=== PATIENT | female | born 1950 | race Caucasian/White ===

== ENCOUNTER → 2017-09-06 | Outpatient (CLI) | payer OTHER ==
[2014-04-10 10:41] VITALS: BP 123/63
--- NOTE | 2017-09-07 15:04 | MG ---
HISTORY: SCREENING Comparison: No previous mammograms been performed at this facility FINDINGS: Bilateral CC and MLO projections of the right and left breast were obtained. Scattered fibroglandula r tissue is seen to be present. A cluster of four small benign-appearing nodules, measuring 2-4 mm i n diameter, is seen in the upper outer aspect of the right breast. Likelihood is that these represent small intramammary lymph nodes. No other sign of dominant mass, areas architectural distortion, or s uspicious microcalcifications are seen on either side.. No skin thickening or nipple retraction is a ppreciated. No pathological lymphadenopathy can be identified. Benign-appearing calcifications scat tered throughout the right and left breasts are observed. IMPRESSION: NO RADIOGRAPHIC EVIDENCE OF MALIGNANCY. ACR CATEGORY: 2 - benign findings. FOLLOW-UP EXAM 1 YEAR. Diagnostic CAD was utilized and reviewed. * 0 (ZERO) - ASSESSMENT INCOMPLETE; ADDITIONAL IMAGING IS NEEDED. * / (ONE) - NEGATIVE. * 2/II (TWO) - BENIGN FINDINGS. * 3/III (THREE) - PROBABLY BENIGN FINDING; SHORT INTERVAL FOLLOW-UP SUGGESTED. * 4/IV (FOUR) - SUSPICIOUS ABNORMALITY; BIOPSY SHOULD BE CONSIDERED. * 5/V - HIGHLY SUSPICIOUS OF MALIGNANCY; BIOPSY SHOULD BE PERFORMED. A NEGATIVE X-RAY REPORT SHOULD NOT DELAY BIOPSY IF A DOMINANT OR CLINICALLY SUSPICIOUS MASS IS PRESENT; 4 TO 8 PERCENT OF CANCERS ARE NOT IDENTIFIED BY X-RAY. A NEGA TIVE REPORT MAY REINFORCE THE CLINICAL IMPRESSION. ADENOSIS AND DENSE BREASTS MAY OBSCURE AN UNDERLYING NEOPLASM. Reported By:
== END ==
LOC: RAD 13:10
PROVIDERS: ATTEND Physician Assistant Medical
DX: Z12.31 Encounter for screening mammogram for malignant neoplasm of breast (principal)
CPT/HCPCS: 77067

== ENCOUNTER 2021-01-13 15:18 | Observation (INO) ==
--- NOTE | 2021-01-13 16:47 | RAD ---
ACUTE ABDOMEN SERIESHISTORY:ABDOMINAL PAINStudy: Frontal view of the chest, flat and upright views of the abdomenComparison:NoneFindings:Cardiomediastinal silhouette is normal in size .No focal consolidations, pleural effusions or pneumothorax.Flat and upright views of the abdomen demonstrates a normal bowel gas pattern.No free air..No abnormal calcifications or abnormal soft tissue shadows. No acute bony abnormalities.IMPRESSION:1. No acute cardiopulmonary disease.2. No evidence for acute abdominal pathology.Electronically signed by: HAO AVALOS (Jan 13, 2021 16:46:03)
[2021-01-13 17:02] LABS: BASOPHILS % (AUTO) 0.5 % (0.2-1.0); EOSINOPHILS % (AUTO) 0.2 % (0.9-2.9); HEMATOCRIT 40.9 % (36.0-47.0); HEMOGLOBIN 13.9 g/dL (12.0-16.0); LYMPHOCYTES # (AUTO) 1.6 X10^3/uL (1.3-2.9); LYMPHOCYTES % (AUTO) 20.4 % (21.0-51.0); MEAN CORPUSCULAR HEMOGLOBIN 29.7 pg (27.0-34.0); MEAN CORPUSCULAR VOLUME 87.3 fL (80.0-100.0); MEAN PLATELET VOLUME 7.4 fL (7.4-11.0); MONOCYTES # (AUTO) 0.6 x10^3/uL (0.3-0.8); MONOCYTES % (AUTO) 7.3 % (0.0-13.0); NEUTROPHILS # (AUTO) 5.6 x10^3/uL (2.2-4.8); NEUTROPHILS % (AUTO) 71.6 % (42.0-75.0); PLATELET COUNT 263 X10^3/uL (150.0-450.0); RED BLOOD COUNT 4.69 X10^6/uL (3.5-5.4); RED CELL DISTRIBUTION WIDTH 14.8 % (11.6-16.5); WHITE BLOOD COUNT 7.8 X10^3/uL (3.6-10.0)
[2021-01-13 17:19] LABS: ALANINE AMINOTRANSFERASE 39 Units/L (12-78); ALBUMIN 4.1 g/dL (3.4-5.0); ALKALINE PHOSPHATASE 94 Units/L (46-116); AMYLASE 42 Units/L (25-115); ASPARTATE AMINO TRANSFERASE 26 Units/L (15-37); BLOOD UREA NITROGEN 12 mg/dL (7-18); CALCIUM 9.3 mg/dL (8.5-10.1); CARBON DIOXIDE 25.2 mmol/L (21-32); CHLORIDE 103 mmol/L (98-107); COR NA(FOR HYPERGLY) 139 mmol/L (136-145); CREATININE 1.05 mg/dL (0.55-1.02); LIPASE 166 Units/L (73-393); SODIUM 138 mmol/L (136-145); TOTAL PROTEIN 7.3 g/dL (6.4-8.2); eGFR NON BLACK RACES 55 (>60)
[2021-01-13] MEDS: PROTONIX INJ 40 MG VIAL IVP SCH ×2 (17:23→20:10)
[2021-01-13] MEDS: NS 1000 ML 1,000 ML IV SCH (17:23)
[2021-01-13 17:54] VITALS: BMI 31.9
[2021-01-13] MEDS ORDERED: ZOFRAN INJ 4 MG VIAL IVP PRN (18:21)
--- NOTE | 2021-01-13 18:28 | DR.H&P ---
H&P - History & Physical for Day of: H&P Date: 01/13/21 - Chief Complaint Chief Complaint: ABDOMINAL PAIN, N/V, DEHYDRATION - History of Present Illness History of Present Illness: PT IS 70 WF DIRECT ADMIT WITH CO INTRACTABLE ABDOMINAL PAIN SINCE NOVEMBER. PT STATES SHE HAD EGD THEN AND DX WITH GASTROPARESIS. PT HAS BEEN TO ER 3 TIMES SINCE THEN AND IN OUR OFFICE X2 WITH ABDOMINAL PAIN NOT IMPROVED WITH PPI, NARCOTIC PAIN CONTROL, PEPCID OR ANTI SPASMODICS. PT ADMITTED FOR ACUTE ILLNESS. - Past Medical History Past Medical History: Anxiety, Arthritis, GERD, Hypertension - Past Surgical History Surgical History: Cholecystectomy, Hysterectomy, Tonsillectomy - Family History Family Medical History: Cancer, Hypertension - Social History Does patient currently use any type of tobacco product: No Have you used tobacco products in the last 12 months: No Type of Tobacco Use: None Does any household member use tobacco: No Alcohol Use: None Drug Use: None Prescription drug monitoring program results: PDMP reviewed and no concerns identified - Medications Home Medications: No Known Drug Allergies Allergy (Verified 03/01/18 10:44) CONTINUE taking the following medications cariprazine [Vraylar] 1.5 mg PO DAILY 01/13/21 [History] dicyclomine 20 mg PO QID 01/13/21 [History] pantoprazole [Protonix] 40 mg PO BID 01/13/21 [History] solifenacin [Vesicare] 10 mg PO DAILY 01/13/21 [History] sucralfate 1 g PO DAILYAC 01/13/21 [History] - Review of Systems Constitutional: Weakness Eyes: No Symptoms Reported ENT: No Symptoms Reported Respiratory: No Symptoms Reported Cardiovascular: No Symptoms Reported Gastrointestinal: Nausea, Vomiting, Abdominal Pain, Diarrhea, Constipation Genitourinary: No Symptoms Reported Musculoskeletal: No Symptoms Reported Skin: No Symptoms Reported Neurological: No Symptoms Reported - Physical Exam Vital Signs: Temperature 98.6 F Pulse Rate [Left Brachial] 86 Respiratory Rate 20 Blood Pressure [Left Arm] 145/70 Oriented: Normal Eyes: Normal Ear: Normal Nose: Normal Throat: Normal Respiratory: Clear Throughout Cardiovascular: Normal : Normal Auscultation: Bowel Sounds: Normal Tenderness: Diffuse, RUQ, LUQ, Epigastric Skin: Decreased Turgur Musculoskeletal: Back:Thoracic, Back:Lumbar Psychiatric: Anxiety Affect: Anxious Speech Pattern: Clear, Appropriate - Assessment/Plan (1) Acute mesenteric adenitis Status: Acute Plan: ADMIT, NPO AFTER MID NIGHT FOR CT. AMYLASE LIPASE AND LACTIC ACID ON ADMISSION. IV HYDRATION, BID PPI THERAPY. PAIN CONTROL. VERIFY HOME MEDICATION, STOOL STUDIES (2) Gastroparesis Status: Acute (3) Hernia, hiatal Status: Acute - Allergies Allergies/Adverse Reactions: Allergies Allergy/AdvReac Type Severity Reaction Status Date / Time No Known Drug Allergies Allergy Verified 03/01/18 10:44
[2021-01-13 19:47] LABS: BILIRUBIN,URINE NEGATIVE (NEGATIVE); BLOOD/HEMOGLOBIN,URINE NEGATIVE (NEGATIVE); GLUCOSE, URINE NEGATIVE (NEGATIVE); KETONES,URINE 1+ (NEGATIVE); LEUKOCYTE ESTERASE ,URINE 1+ (NEGATIVE); NITRITES,URINE NEGATIVE (NEGATIVE); PROTEIN,URINE NEGATIVE (NEGATIVE); UROBILINOGEN,URINE NORMAL (NORMAL)
[2021-01-13 19:57] LABS: APPEARANCE,URINE HAZY (CLEAR); COLOR,URINE STRAW (YELLOW)
[2021-01-13 19:58] LABS: BACTERIA,URINE TRACE /HPF (NEGATIVE); SQUAMOUS EPITHELIAL CELL,UR RARE /HPF (NEGATIVE); TRANSITIONAL EPI CELLS,URINE FEW /HPF (NEGATIVE)
[2021-01-13] MEDS: ZITHROMAX INJ 500 MG VIAL 500 MG in NS 250 ML IV 250 ML IV SCH (20:11)
[2021-01-13] MEDS: COZAAR PO SCH (20:11)
[2021-01-13] MEDS: TORADOL 30 MG VIAL IVP SCH (20:18)
[2021-01-13] MEDS: CARAFATE ORAL SUSP PO SCH (21:56)
[2021-01-13] MEDS: DONNATAL TAB PO SCH (21:56)
[2021-01-13] MEDS: COLACE CAP 100 MG PO SCH (21:57)
[2021-01-14] MEDS: NORCO 5/325 MG TAB PO PRN (01:47)
[2021-01-14] MEDS: TORADOL 30 MG VIAL IVP SCH ×2 (03:15→11:30)
[2021-01-14] MEDS: DONNATAL TAB PO SCH ×4 (05:51→22:02)
[2021-01-14] MEDS: CARAFATE ORAL SUSP PO SCH ×4 (05:52→22:01)
[2021-01-14] MEDS: NS 1000 ML 1,000 ML IV SCH ×2 (05:52→21:52)
[2021-01-14 06:12] LABS: BASOPHILS % (AUTO) 0.6 % (0.2-1.0); EOSINOPHILS # (AUTO) 0.1 x10^3/uL (0.0-0.2); HEMATOCRIT 36.6 % (36.0-47.0); HEMOGLOBIN 12.4 g/dL (12.0-16.0); LYMPHOCYTES # (AUTO) 1.4 X10^3/uL (1.3-2.9); LYMPHOCYTES % (AUTO) 22.3 % (21.0-51.0); MEAN CORPUSCULAR HEMOGLOBIN 29.4 pg (27.0-34.0); MEAN CORPUSCULAR HGB CONC 33.9 g/dL (33.0-35.0); MEAN CORPUSCULAR VOLUME 86.6 fL (80.0-100.0); MEAN PLATELET VOLUME 7.7 fL (7.4-11.0); MONOCYTES # (AUTO) 0.6 x10^3/uL (0.3-0.8); NEUTROPHILS # (AUTO) 4.4 x10^3/uL (2.2-4.8); NEUTROPHILS % (AUTO) 67.1 % (42.0-75.0); PLATELET COUNT 214 X10^3/uL (150.0-450.0); RED BLOOD COUNT 4.22 X10^6/uL (3.5-5.4); RED CELL DISTRIBUTION WIDTH 14.4 % (11.6-16.5); WHITE BLOOD COUNT 6.5 X10^3/uL (3.6-10.0)
[2021-01-14 06:34] LABS: ALANINE AMINOTRANSFERASE 33 Units/L (12-78); ALBUMIN 3.5 g/dL (3.4-5.0); ALKALINE PHOSPHATASE 80 Units/L (46-116); ASPARTATE AMINO TRANSFERASE 24 Units/L (15-37); BLOOD UREA NITROGEN 9 mg/dL (7-18); CALCIUM 8.5 mg/dL (8.5-10.1); CHLORIDE 108 mmol/L (98-107); CREATININE 0.95 mg/dL (0.55-1.02); SODIUM 142 mmol/L (136-145); TOTAL PROTEIN 6.3 g/dL (6.4-8.2); eGFR NON BLACK RACES > 60 (>60)
[2021-01-14] MEDS: COZAAR PO SCH (08:18)
[2021-01-14] MEDS: CYMBALTA PO SCH (08:18)
[2021-01-14] MEDS: CARIPRAZINE 1.5 MG PO SCH (08:18)
[2021-01-14] MEDS: LOVENOX INJ 40 MG SYR SC SCH ×2 (08:20→08:23)
[2021-01-14] MEDS: PROTONIX INJ 40 MG VIAL IVP SCH ×2 (08:20→22:03)
[2021-01-14] MEDS: MORPHINE SULFATE INJ 2 MG INJ IVP PRN ×2 (10:30→17:29)
[2021-01-14] MEDS: ZITHROMAX INJ 500 MG VIAL 500 MG in NS 250 ML IV 250 ML IV SCH (21:52)
[2021-01-14] MEDS: COLACE CAP 100 MG PO SCH (22:01)
[2021-01-15] MEDS ORDERED: CARAFATE ORAL SUSP PO ONE (04:01)
[2021-01-15] MEDS: DONNATAL TAB PO SCH ×2 (06:25→11:41)
[2021-01-15] MEDS: CARAFATE ORAL SUSP PO SCH ×2 (06:25→11:40)
[2021-01-15] MEDS: COZAAR PO SCH (09:37)
[2021-01-15] MEDS: LOVENOX INJ 40 MG SYR SC SCH (09:39)
[2021-01-15] MEDS: PROTONIX INJ 40 MG VIAL IVP SCH (09:39)
[2021-01-15 10:18] LABS: CRYPTOSPORIDIUM PARVUM ANTIGEN NEGATIVE (NEGATIVE); GIARDIA LAMBLIA ANTIGEN NEGATIVE (NEGATIVE)
--- NOTE | 2021-01-15 11:10 | CT ---
CT abdomen and pelvis with contrastIndication: Abdominal painComparison January 10, 2021 CT.TECHNIQUEHelical images through the abdomen and pelvis after IV contrast. Coronal and sagittal reformats provided.FINDINGSReview of bone windows demonstrate no destructive osseous lesion. Spine DJD notedLimited images through the lower chest demonstrate small hiatal hernia and scarring in the lung bases. Heart size is enlarged.Abdomen: The gallbladder is absent. The liver is low in attenuation. Spleen is prominent in size. Portal vein is prominent and borderline cirrhotic configuration of the liver noted.Adrenal glands are normal. Tiny hypodensity at the head of the pancreas is noted on axial image 28, too small to further characterize.Kidneys show no hydroureteronephrosis. There is exophytic left renal cyst. Aortoiliac vessels are patent. Oral contrast passes distally without obstruction.There are shotty lymph nodes in the right lower quadrant with mild stranding. The appendix is normal.Pelvis: Urinary bladder and rectum are normal. Uterus is absent. No adnexal region lesions seen.IMPRESSION1. Right lower quadrant stranding and shotty lymph nodes is similar to slightly improved from the prior, without evidence of acute appendicitis identified. Mild ileitis or inflammation of the cecum not excluded. No drainable collection identified. Given the patient's age, nonemergent colonoscopy follow-up is recommended to exclude other lying lesion at the cecum, as underlying neoplasm is not excluded2. Prominent heart size, hiatal hernia, spine DJD and other findings as above.3. Tiny hypodensity at the head of the pancreas is nonspecific, possibly a small IPMN. Nonemergent MR follow-up can definitively characterize.Electronically signed by: JOSE STALLINGS (Jan 15, 2021 11:07:37)
[2021-01-15] MEDS: CYMBALTA PO SCH ×2 (11:26→11:32)
[2021-01-15] MEDS: CARIPRAZINE 1.5 MG PO SCH (11:31)
--- NOTE | 2021-01-15 11:31 | DR.CONSULT ---
Consult - Consultation for Day of: Date: 01/14/21 - Chief Complaint Chief Complaint: Patient referred for abdominal pain. Patient with complaints dyspesia, epigastric pain and diarrhea. - History of Present Illness History of Present Illness: Patient is a 70 yo female who was referred for abdominal pain. Patient with complaints dyspesia, epigastric pain and diarrhea that has improved since in the hospital. Pateint denies dysphagia, nausea, vomiting, constipation, melena and hematochezia. Last Colon was 10/22/20 internal hemorrhoids and tubular adenomatous colon polyps x2. Last EGD was 12/10/20 EGD, showing disal esophagitits with stricture, 2 cm hiatal hernia, retained food consistent with gastroparesis and antral gasritis. Was on reglan but stopped due to legs feeling like jello. Abdomen and pelvis CT scan on 01/10/21 small hiatal hernia. Hgb 12.4, Hct 36.6, Plt 214, BUN 9, Creatinine 0.95, T. Bili 0.4, AST 24, ALT 33, ALP 80 - Past Medical History Past Medical History: Anxiety, Arthritis, GERD, Hypertension - Past Surgical History Surgical History: Cholecystectomy, Hysterectomy, Tonsillectomy - Family History Family Medical History: Cancer, Hypertension - Social History Does patient currently use any type of tobacco product: No Have you used tobacco products in the last 12 months: No Type of Tobacco Use: None Does any household member use tobacco: No Alcohol Use: None Drug Use: None - Medications Home Medications: No Known Drug Allergies Allergy (Verified 03/01/18 10:44) CONTINUE taking the following medications cariprazine [Vraylar] 1.5 mg PO DAILY 01/13/21 [History] dicyclomine 20 mg PO QID 01/13/21 [History] pantoprazole [Protonix] 40 mg PO BID 01/13/21 [History] solifenacin [Vesicare] 10 mg PO DAILY 01/13/21 [History] sucralfate 1 g PO DAILYAC 01/13/21 [History] - Review of Systems Gastrointestinal: See HPI, Nausea, Abdominal Pain. denies: Vomiting, Diarrhea, Constipation, Melena, Hematochezia, Other - Physical Exam Vital Signs: Temperature 97.6 F Pulse Rate [Left Brachial] 70 Respiratory Rate 18 Blood Pressure [Left Arm] 135/68 O2 Sat by Pulse Oximetry 95 Auscultation: Bowel Sounds: Normal Palpation: Normal, Other (no distention). negative: Spleen Enlarged, Liver Enlarged, Mass Pulsatile Tenderness: Epigastric - Plan Plan: Assessment. 1. Epigatric pain likely gastroenteritis. 2. GERD. 3. Diarrhea. 4. History of tubular adenomatous colon polyps. Plan. 1. Protonix IV, IV Hydration. 2. Stool Studies. Plan reviewed with Dr. Ray - Allergies Allergies/Adverse Reactions: Allergies Allergy/AdvReac Type Severity Reaction Status Date / Time No Known Drug Allergies Allergy Verified 03/01/18 10:44
[2021-01-15 13:20] VITALS: BP 156/73
[2021-01-15] MEDS: NORCO 5/325 MG TAB PO PRN (15:18)
[2021-01-15] MEDS ORDERED: CARAFATE PO SCH (16:30)
== END 2021-01-15 16:10 | disposition home or self-care (01) ==
LOC: MED/SURG → OBS 01-14 20:11
PROVIDERS: ADMIT Internal Medicine; ATTEND Internal Medicine
DX: F32.89 Other specified depressive episodes; Z86.010 Personal history of colon polyps; K44.9 Diaphragmatic hernia without obstruction or gangrene; I88.0 Nonspecific mesenteric lymphadenitis; I10 Essential (primary) hypertension; K31.84 Gastroparesis; R10.84 Generalized abdominal pain; F41.8 Other specified anxiety disorders; Z20.822 Contact with and (suspected) exposure to COVID-19; E11.43 Type 2 diabetes mellitus with diabetic autonomic (poly)neuropathy; K29.00 Acute gastritis without bleeding; K21.9 Gastro-esophageal reflux disease without esophagitis; R93.89 Abnormal findings on diagnostic imaging of other specified body structures; K52.89 Other specified noninfective gastroenteritis and colitis

== ENCOUNTER 2021-03-14 11:56 | Observation (INO) ==
--- NOTE | 2021-03-14 12:58 | DR.GENAD ---
HPI Time Seen Time Seen by Provider: 03/14/21 12:57 PCP Primary Care Physician: MOISES Complaint/Symptoms Chief Complaint Doctors Comments: NAUSEA AND VOMITING TIMES ONE MONTH. Chief Complaint:: PATIENT CAME TO ER REPORTS BEING NAUSEATED, NOT ABLE TO EAT, WHEN LYING DOWN FEEL HOT FROM WASTE UP ONSET 1 MONTH AGO WORSENING. COVID-19 Coronavirus risk:travel/contact w/high risk person: No Has patient experienced Coronavirus symptoms: No Nurses notes reviewed Nurses Notes Review: Yes Source History Provided: Patient Mode of Arrival Mode of Arrival: Ambulatory Timing Onset of Chief Complaint: 02/12/21 Came on: Suddenly Duration Duration: Constant Severity Severity: Moderate Modifying Factors Worsens:: FOOD PMH PMH Past Medical History: Yes Past Medical History: Depression and Hypertension Past Medical History Comment: GASTROPARESIS Past Surgical History: Yes Surgical History: Cholecystectomy, Hysterectomy and Tonsillectomy Past Surgical History Comment: LENS IMPLANTS, RIGHT FOOT FOR HAMMER TOE Family History History of Family Medical Conditions: Yes Family Medical History: Cancer and Hypertension Social History Do you use any recreational Drugs:: No Travel Risk Coronavirus risk:travel/contact w/high risk person: No Has patient experienced Coronavirus symptoms: No Infectious screening In the last 2 months have you had wt loss of >10#?: NO Have you had fever, night sweats or hemotysis?: No Have you traveled outside the country in the last 6 months?: No Isolation: Standard ROS Review of Systems Constitutional: No Symptoms Reported and See HPI Eyes: No Symptoms Reported and See HPI ENTM: No Symptoms Reported and See HPI Respiratoy: No Symptoms Reported and See HPI Cardiovascular: No Symptoms Reported and See HPI Gastrointestinal/Abdominal: No Symptoms Reported and See HPI Genitourinary: No Symptoms Reported and See HPI Neurological: No Symptoms Reported and See HPI Musculoskeletal: No Symptoms Reported and See HPI Integumentary: No Symptoms Reported and See HPI Hematologic/Lymphatic: No Symptoms Reported and See HPI Endocrine: No Symptoms Reported and See HPI Psychiatric: No Symptoms Reported and See HPI All Other Systems: Reviewed and Negative PE Vital Signs Vitals: Temperature 97.9 F Pulse Rate 96 Respiratory Rate 20 Blood Pressure [Left Arm] 164/72 Blood Pressure 133/88 O2 Sat by Pulse Oximetry 95 General Limitations: No Limitations General Appearance: Alert and In No Apparent Distress Head Head Exam: Normal Inspection Eyes Eye exam: Normal Appearance ENT ENT Exam: Normal Exam External Ear Exam: Normal External Inspection TM/Canal Exam: Bilateral: Normal Nose Exam: Normal Nose Exam Mouth Exam: Normal Inspection Throat Exam: Normal Inspection Neck Neck Exam: Normal Inspection Chest Chest Inspection: Normal Inspection Respiratory Respiratory Exam: Normal Lung Sounds Bilat Respiratory Exam: Bilateral: Clear to Auscultation Cardiovascular Cardiovascular Exam: Regular Rate and Normal Rhythm Abdominal Exam Abdominal Exam: Normal Inspection, Normal Bowel Sounds and Soft Extremities Extremities Exam: Normal Inspection Back Back Exam: Normal Inspection Neurologic Neurological Exam: Alert and Oriented X3 Psychiatric Psychiatric Exam: Normal Affect and Normal Mood Skin Skin Exam: Warm, Dry, Intact and Normal Color ROR Labs Reviewed Result Diagrams: 03/16/21 05:28 03/16/21 05:28 Laboratory: WBC 8.4 X10^3/uL (3.6-10.0) 03/14/21 13:17 RBC 5.07 X10^6/uL (3.5-5.4) 03/14/21 13:17 Hgb 15.0 g/dL (12.0-16.0) 03/14/21 13:17 Hct 44.1 % (36.0-47.0) 03/14/21 13:17 MCV 87.1 fL (80.0-100.0) 03/14/21 13:17 MCH 29.6 pg (27.0-34.0) 03/14/21 13:17 MCHC 33.9 g/dL (33.0-35.0) 03/14/21 13:17 RDW 15.2 % (11.6-16.5) 03/14/21 13:17 Plt Count 249 X10^3/uL (150.0-450.0) 03/14/21 13:17 MPV 7.2 fL (7.4-11.0) L 03/14/21 13:17 Neut % (Auto) 78.7 % (42.0-75.0) H 03/14/21 13:17 Lymph % (Auto) 14.3 % (21.0-51.0) L 03/14/21 13:17 [place] % (Auto) 6.5 % (0.0-13.0) 03/14/21 13:17 Eos % (Auto) 0.2 % (0.9-2.9) L 03/14/21 13:17 Baso % (Auto) 0.3 % (0.2-1.0) 03/14/21 13:17 Neut # (Auto) 6.7 x10^3/uL (2.2-4.8) H 03/14/21 13:17 Lymph # (Auto) 1.2 X10^3/uL (1.3-2.9) L 03/14/21 13:17 [place] # (Auto) 0.5 x10^3/uL (0.3-0.8) 03/14/21 13:17 Eos # (Auto) 0.0 x10^3/uL (0.0-0.2) 03/14/21 13:17 Baso # (Auto) 0.0 X10^3/uL (0.0-0.1) 03/14/21 13:17 Absolute Nucleated RBC 0.1 /100WBC 03/14/21 13:17 Sodium 139 mmol/L (136-145) 03/14/21 13:17 Corrected Sodium TNP 03/14/21 13:17 Potassium 4.2 mmol/L (3.5-5.1) 03/14/21 13:17 Chloride 102 mmol/L (98-107) 03/14/21 13:17 Carbon Dioxide 28.3 mmol/L (21-32) 03/14/21 13:17 BUN 16 mg/dL (7-18) 03/14/21 13:17 Creatinine 0.88 mg/dL (0.55-1.02) 03/14/21 13:17 Est GFR (MDRD) Af Amer > 60 (>60) 03/14/21 13:17 Est GFR (MDRD) Non-Af > 60 (>60) 03/14/21 13:17 Glucose 88 mg/dL (65-99) 03/14/21 13:17 Calcium 9.2 mg/dL (8.5-10.1) 03/14/21 13:17 Corrected Calcium TNP 03/14/21 13:17 Total Bilirubin 0.70 mg/dL (0.2-1.0) 03/14/21 13:17 AST 25 Units/L (15-37) 03/14/21 13:17 ALT 42 Units/L (12-78) 03/14/21 13:17 Alkaline Phosphatase 90 Units/L (46-116) 03/14/21 13:17 Total Protein 7.1 g/dL (6.4-8.2) 03/14/21 13:17 Albumin 3.9 g/dL (3.4-5.0) 03/14/21 13:17 Globulin 3.2 g/dL (2.5-4.5) 03/14/21 13:17 Albumin/Globulin Ratio 1.2 Ratio (1.1-2.1) 03/14/21 13:17 Amylase 48 Units/L (25-115) 03/14/21 13:17 Lipase 160 Units/L (73-393) 03/14/21 13:17 SARS-CoV-2 (PCR) Negative (NEGATIVE) 03/14/21 17:02 Influenza Type A (PCR) Negative (NEGATIVE) 03/14/21 17:02 Influenza Type B (PCR) Negative (NEGATIVE) 03/14/21 17:02 RSV (PCR) Negative (NEGATIVE) 03/14/21 17:02 Opioid Opioid Risk Tool Age (Shree box if 16-45): No History of Preadolescent Sexual Abuse: No Total: 0 Total Score Risk Category: Low Risk Copyright: Jelani REINOSO predicting aberrant behaviors Diagnosis Discharge Problem: Nausea & vomiting, Diarrhea, Generalized weakness Instructions Instructions: Abdominal Pain, Adult, [id number] Food Choices to Help Relieve Diarrhea, Adult Hiatal Hernia Nausea, Adult, [id number] Diarrhea, Adult, [id number] Gastroparesis Forms: Precautions for COVID19 [facility] Social Distancing
[2021-03-14] MEDS ORDERED: PEPCID 20 MG IV PREMIX* 20 MG/50 ML BAG IV ONE (13:05)
[2021-03-14] MEDS ORDERED: NS 1000 ML 1,000 ML IV ONE (13:05)
[2021-03-14] MEDS ORDERED: NS 1000 ML 1,000 ML ONE (13:12)
[2021-03-14] MEDS ORDERED: PEPCID 20 MG IV PREMIX* 50 ML IV ONE ×2 (13:13→19:55)
[2021-03-14 13:26] LABS: MEAN CORPUSCULAR HEMOGLOBIN 29.6 pg (27.0-34.0); MEAN CORPUSCULAR HGB CONC 33.9 g/dL (33.0-35.0); RED BLOOD COUNT 5.07 X10^6/uL (3.5-5.4); RED CELL DISTRIBUTION WIDTH 15.2 % (11.6-16.5)
[2021-03-14 13:29] LABS: BASOPHILS % (AUTO) 0.3 % (0.2-1.0); EOSINOPHILS % (AUTO) 0.2 % (0.9-2.9); HEMATOCRIT 44.1 % (36.0-47.0); LYMPHOCYTES # (AUTO) 1.2 X10^3/uL (1.3-2.9); LYMPHOCYTES % (AUTO) 14.3 % (21.0-51.0); MEAN CORPUSCULAR VOLUME 87.1 fL (80.0-100.0); MEAN PLATELET VOLUME 7.2 fL (7.4-11.0); MONOCYTES # (AUTO) 0.5 x10^3/uL (0.3-0.8); MONOCYTES % (AUTO) 6.5 % (0.0-13.0); NEUTROPHILS # (AUTO) 6.7 x10^3/uL (2.2-4.8); NEUTROPHILS % (AUTO) 78.7 % (42.0-75.0); PLATELET COUNT 249 X10^3/uL (150.0-450.0); WHITE BLOOD COUNT 8.4 X10^3/uL (3.6-10.0)
[2021-03-14 13:38] LABS: ALANINE AMINOTRANSFERASE 42 Units/L (12-78); ALBUMIN 3.9 g/dL (3.4-5.0); ALKALINE PHOSPHATASE 90 Units/L (46-116); AMYLASE 48 Units/L (25-115); ASPARTATE AMINO TRANSFERASE 25 Units/L (15-37); BLOOD UREA NITROGEN 16 mg/dL (7-18); CALCIUM 9.2 mg/dL (8.5-10.1); CARBON DIOXIDE 28.3 mmol/L (21-32); CHLORIDE 102 mmol/L (98-107); CREATININE 0.88 mg/dL (0.55-1.02); LIPASE 160 Units/L (73-393); SODIUM 139 mmol/L (136-145); TOTAL PROTEIN 7.1 g/dL (6.4-8.2); eGFR NON BLACK RACES > 60 (>60)
[2021-03-14] MEDS: PEPCID 20 MG IV PREMIX* 20 MG/50 ML BAG IV SCH (21:20)
[2021-03-14] MEDS: NS 1000 ML 1,000 ML IV SCH ×2 (21:20)
[2021-03-14] MEDS: ZOFRAN INJ 4 MG VIAL IVP PRN (21:20)
[2021-03-15 04:40] LABS: BILIRUBIN,URINE NEGATIVE (NEGATIVE); BLOOD/HEMOGLOBIN,URINE 1+ (NEGATIVE); GLUCOSE, URINE NEGATIVE (NEGATIVE); KETONES,URINE 4+ (NEGATIVE); LEUKOCYTE ESTERASE ,URINE 2+ (NEGATIVE); NITRITES,URINE NEGATIVE (NEGATIVE); PROTEIN,URINE 1+ (NEGATIVE); UROBILINOGEN,URINE NORMAL (NORMAL)
[2021-03-15 04:46] LABS: APPEARANCE,URINE CLEAR (CLEAR); BACTERIA,URINE TRACE /HPF (NEGATIVE); COLOR,URINE YELLOW (YELLOW); RBC,URINE NONE SEEN /HPF (0-3); SQUAMOUS EPITHELIAL CELL,UR NEGATIVE /HPF (NEGATIVE)
[2021-03-15] MEDS ORDERED: MAALOX or MYLANTA ONE (04:54)
[2021-03-15] MEDS: MAALOX or MYLANTA PO PRN ×3 (04:59→08:56)
[2021-03-15] MEDS: NS 1000 ML 1,000 ML IV SCH ×5 (05:31→23:48)
[2021-03-15 06:15] LABS: BASOPHILS % (AUTO) 0.5 % (0.2-1.0); EOSINOPHILS # (AUTO) 0.1 x10^3/uL (0.0-0.2); HEMATOCRIT 38.7 % (36.0-47.0); HEMOGLOBIN 13.1 g/dL (12.0-16.0); LYMPHOCYTES # (AUTO) 1.2 X10^3/uL (1.3-2.9); LYMPHOCYTES % (AUTO) 19.1 % (21.0-51.0); MEAN CORPUSCULAR HEMOGLOBIN 29.8 pg (27.0-34.0); MEAN CORPUSCULAR HGB CONC 33.9 g/dL (33.0-35.0); MEAN CORPUSCULAR VOLUME 88.2 fL (80.0-100.0); MEAN PLATELET VOLUME 7.3 fL (7.4-11.0); MONOCYTES # (AUTO) 0.5 x10^3/uL (0.3-0.8); MONOCYTES % (AUTO) 8.6 % (0.0-13.0); NEUTROPHILS # (AUTO) 4.3 x10^3/uL (2.2-4.8); NEUTROPHILS % (AUTO) 70.8 % (42.0-75.0); PLATELET COUNT 189 X10^3/uL (150.0-450.0); RED BLOOD COUNT 4.39 X10^6/uL (3.5-5.4); RED CELL DISTRIBUTION WIDTH 14.9 % (11.6-16.5)
[2021-03-15 06:26] LABS: ALANINE AMINOTRANSFERASE 32 Units/L (12-78); ALBUMIN 3.3 g/dL (3.4-5.0); ALKALINE PHOSPHATASE 70 Units/L (46-116); ASPARTATE AMINO TRANSFERASE 22 Units/L (15-37); BLOOD UREA NITROGEN 15 mg/dL (7-18); CALCIUM 8.4 mg/dL (8.5-10.1); CARBON DIOXIDE 26.2 mmol/L (21-32); CHLORIDE 105 mmol/L (98-107); CREATININE 0.78 mg/dL (0.55-1.02); SODIUM 141 mmol/L (136-145); TOTAL PROTEIN 5.9 g/dL (6.4-8.2); eGFR NON BLACK RACES > 60 (>60)
[2021-03-15] MEDS: PEPCID 20 MG IV PREMIX* 20 MG/50 ML BAG IV SCH ×2 (08:37→20:44)
[2021-03-15] MEDS: PROTONIX INJ 40 MG VIAL IVP SCH ×2 (09:35→20:44)
[2021-03-15] MEDS: ZOFRAN INJ 4 MG VIAL IVP PRN ×2 (12:05→20:44)
[2021-03-15 14:24] LABS: CRYPTOSPORIDIUM PARVUM ANTIGEN NEGATIVE (NEGATIVE); GIARDIA LAMBLIA ANTIGEN NEGATIVE (NEGATIVE)
[2021-03-16 06:07] LABS: BASOPHILS % (AUTO) 0.6 % (0.2-1.0); EOSINOPHILS # (AUTO) 0.1 x10^3/uL (0.0-0.2); EOSINOPHILS % (AUTO) 1.2 % (0.9-2.9); HEMATOCRIT 38.3 % (36.0-47.0); HEMOGLOBIN 13.1 g/dL (12.0-16.0); LYMPHOCYTES # (AUTO) 1.1 X10^3/uL (1.3-2.9); LYMPHOCYTES % (AUTO) 20.2 % (21.0-51.0); MEAN CORPUSCULAR HGB CONC 34.1 g/dL (33.0-35.0); MEAN CORPUSCULAR VOLUME 87.9 fL (80.0-100.0); MEAN PLATELET VOLUME 7.2 fL (7.4-11.0); MONOCYTES # (AUTO) 0.4 x10^3/uL (0.3-0.8); MONOCYTES % (AUTO) 7.8 % (0.0-13.0); NEUTROPHILS # (AUTO) 3.8 x10^3/uL (2.2-4.8); NEUTROPHILS % (AUTO) 70.2 % (42.0-75.0); PLATELET COUNT 189 X10^3/uL (150.0-450.0); RED BLOOD COUNT 4.35 X10^6/uL (3.5-5.4); WHITE BLOOD COUNT 5.3 X10^3/uL (3.6-10.0)
[2021-03-16 06:16] LABS: ALANINE AMINOTRANSFERASE 33 Units/L (12-78); ALBUMIN 3.3 g/dL (3.4-5.0); ALKALINE PHOSPHATASE 71 Units/L (46-116); ASPARTATE AMINO TRANSFERASE 22 Units/L (15-37); BLOOD UREA NITROGEN 7 mg/dL (7-18); CALCIUM 8.5 mg/dL (8.5-10.1); CHLORIDE 106 mmol/L (98-107); COR CA(FOR HYPOALB) 9.1 mg/dL (8.5-10.1); MAGNESIUM 2.1 mg/dL (1.7-2.9); SODIUM 142 mmol/L (136-145); eGFR NON BLACK RACES > 60 (>60)
[2021-03-16] MEDS ORDERED: ATIVAN INJ 2 MG VIAL IVP ONE (08:33)
[2021-03-16] MEDS ORDERED: ATIVAN INJ 2 MG VIAL ONE (08:47)
[2021-03-16] MEDS: PEPCID 20 MG IV PREMIX* 20 MG/50 ML BAG IV SCH (09:54)
[2021-03-16] MEDS: PROTONIX INJ 40 MG VIAL IVP SCH (09:54)
[2021-03-16 11:59] VITALS: BP 145/70
[2021-03-16] MEDS ORDERED: TYLENOL 325 MG TAB PO PRN (12:56)
[2021-03-16] MEDS ORDERED: CARAFATE PO SCH (13:00)
[2021-03-16] MEDS: NS 1000 ML 1,000 ML IV SCH (13:20)
[2021-03-16] MEDS: ZOFRAN INJ 4 MG VIAL IVP PRN (13:20)
--- NOTE | 2021-03-16 13:23 | MRI ---
Exam:MRCPIndication: SEVERE ABDOMINAL PAIN/ GASTROPARESISComparison: [None available]Technique:Multiplanar, multisequence imaging of the abdomen without contrast. Two-dimensional reformatted images with thick and thin slab coronal imaging performed per MRCP protocol.FINDINGSThere is mild drop in signal on out of phase imaging within the liver consistent with mild steatosis. No focal hepatic lesion. No significant intrahepatic biliary ductal dilatation. The common bile duct measures approximately 1 cm in greatest dimension. No filling defect. No heterogeneous signal to suggest clot or sludge. Previous cholecystectomy is noted.The spleen is normal. Pancreas demonstrates mild ductal dilatation without peripancreatic stranding or fluid.Adrenal glands are normal.The right kidney is normal. Left kidney contains an exophytic cyst. No free fluid.Small sliding hiatal hernia.No adenopathy.Impression:Mild hepatic steatosis without focal hepatic lesion.Normal caliber of the intrahepatic and extrahepatic bile ducts, there is no stone or sludge within the common bile duct. Correlate with cholestatic function tests.Exophytic cyst within the upper pole of the left kidney.Small sliding hiatal hernia.Electronically signed by: INDIO MEDINA (Mar 16, 2021 13:21:19)
[2021-03-16] MEDS ORDERED: BENTYL CAP 10 MG PO SCH (14:00)
[2021-03-16] MEDS ORDERED: BENADRYL CAP/TAB 25 MG PO SCH (21:00)
[2021-03-17] MEDS ORDERED: CYMBALTA PO SCH (09:00)
[2021-03-17] MEDS ORDERED: VITAMIN D3 125 mcg (5,000 UNITS) PO SCH (09:00)
[2021-03-17] MEDS ORDERED: COZAAR PO SCH (09:00)
== END 2021-03-16 15:35 | disposition home or self-care (01) ==
LOC: MED/SURG 12:03 → ER 12:03 → MED/SURG 18:24
PROVIDERS: ADMIT Internal Medicine; ATTEND Internal Medicine
DX: N28.1 Cyst of kidney, acquired; K92.1 Melena; R82.998 Other abnormal findings in urine; K31.84 Gastroparesis; K44.9 Diaphragmatic hernia without obstruction or gangrene; R11.2 Nausea with vomiting, unspecified; R10.9 Unspecified abdominal pain; Z20.822 Contact with and (suspected) exposure to COVID-19; F41.9 Anxiety disorder, unspecified